=== PATIENT | male | born 1975 | race Native Hawaiian/Other Pacific Islander ===

== ENCOUNTER 2020-08-15 08:54 | Outpatient (CLI) | payer BC ==
[~2020-08-15] VITALS: Ht 177.8 cm; Wt 133.4 kg
[2020-08-15 10:44] LABS: PLATELET COUNT 221 K/uL (142-355)
[2020-08-15 10:58] LABS: POTASSIUM 3.6 mmol/L (3.6-5.2)
== END 2020-08-15 13:02 | disposition home or self-care (01) ==
LOC: INF 08:54
PROVIDERS: ATTEND Internal Medicine
DX: U07.1 COVID-19 (principal)
CPT/HCPCS: 36591; 80053; 85027; 96365; Q0239